=== PATIENT | female | born 1965 | race Hispanic/Latino ===

== ENCOUNTER 2018-04-15 11:07 | Day surgery (SDC) | payer MEDICAID ==
[2017-10-31 11:14] VITALS: BMI 44.1
[2018-04-15] MEDS ORDERED: Propofol 10 mg/ml Inj (20 ML) ONE ×4 (12:31→13:21)
[2018-04-15] MEDS ORDERED: Lidocaine 1% Inj (20ml) ONE (12:31)
[2018-04-15] MEDS ORDERED: Naloxone 0.4 mg/ml Inj (Adult) ONE (13:01)
[2018-04-15] MEDS ORDERED: Midazolam 2 MG/2 ML VIAL ONE ×2 (13:02→13:18)
[2018-04-15] MEDS ORDERED: Sodium Chloride 0.9% 1,000 ML IV SCH (13:45)
[2018-04-15 14:26] VITALS: BP 134/81; PULSE 79; RESP 18; TEMP 98.4; O2SAT 98
== END 2018-04-15 14:59 | disposition home or self-care (01) ==
LOC: ENDO 11:07
PROVIDERS: ATTEND Internal Medicine Gastroenterology
DX: K92.2 Gastrointestinal hemorrhage, unspecified (principal); K29.50 Unspecified chronic gastritis without bleeding; K21.9 Gastro-esophageal reflux disease without esophagitis; K64.8 Other hemorrhoids; K59.09 Other constipation
CPT/HCPCS: 43239; 45378; 88305; 88312; 88342; J2001; J2250; J2405; J2704; J2765; J3010; J7030; J7040